=== PATIENT | female | born 1935 | race Caucasian/White ===

== ENCOUNTER 2016-07-14 22:30 | Emergency (ER) | payer OTHER ==
[~2016-07-14] VITALS: Ht 170.2 cm; Wt 83.0 kg
[~2016-07-14 22:30] MED LIST: ASPI81CH5; AVAP300T PO; CALC500; GABA400C5 PO; HYDR-2768 PO; METO25 PO; PROT40TA PO; VENL37.5 PO
[2016-07-14] MEDS ORDERED: methylPREDNISolone SOD SUCC 125 MG/2 ML VIAL IV PUSH ONE (22:45)
[2016-07-14] MEDS ORDERED: SODIUM CHLORID 0.9% 500 ML INJ 500 ML IV ONE (22:45)
[2016-07-14] MEDS ORDERED: ONDANSETRON HCL 4 MG/2 ML VIAL IV PUSH ONE (22:45)
--- NOTE | 2016-07-14 23:28 | PD ---
HPI Chief Complaint: cellulitis Time Seen by Provider: 22:33 Travel History International Travel<30 days: No Contact w/Intl Traveler<30days: No Traveled to known affect area: No History of Present Illness HPI Patient is a 80-year-old female who comes in after a possible allergic reaction. She says that she has been having symptoms of a urinary tract infection. She says she called her doctor who gave her a prescription for Macrobid. She took the first pill tonight. She does say that she was taking this in early June as well for possible UTI. She says tonight she started to feel itching in her palms and then her arms. She was trying to get some calamine lotion to put on for the itching. She says she then became sick to her stomach. She went she's the bathroom and vomited in the sink. She says she passed out she thinks. She was found on the ground by her friend. She denies any headache, blurred vision. She is still feeling nauseous. She was given Benadryl by EMS, and says that her itching has resolved now. She denies ever having any trouble breathing. She denies feeling any swelling of her tongue, her mouth or her throat. She says she has not had issues with Macrobid in the past, however is listed as an allergy on a note from Past Medical History Heart Rhythm Problems: No Cardiac Catheterization: No Cardiovascular Problems: No High Cholesterol: Yes Congestive Heart Failure: No Diabetes: Yes (DIET CONTROLLED) Diminished Hearing: No Hypertension: Yes Neurologic: Yes (neuropathy) Past Surgical History Coronary Artery Bypass Graft: No Genitourinary Surgery: Yes (bladder susp.) Gynecologic Surgery: Yes (hysterectomy) Tonsillectomy: Yes Social History Alcohol Use: No Tobacco Use: No Substance Use: No Allergies-Medications (Allergen,Severity, Reaction): Coded Allergies: Macrobid (Verified Allergy, Intermediate, rash, 07/14/16) Penicillin (Verified Allergy, Mild, Hives, 07/14/16) Sulfa (Verified Allergy, Unknown, 07/14/16) Reported Meds & Prescriptions Reported Meds & Active Scripts Active Zofran Odt (Ondansetron Odt) 4 Mg Tab 4 Mg SL Q6HR PRN Pyridium (Phenazopyridine HCl) 100 Mg Tab 100 Mg PO Q8H PRN Ceftin (Cefuroxime Axetil) 500 Mg Tab 500 Mg PO BID 10 Days Medrol Dosepak (Methylprednisolone) 4 Mg Dspk 4 Mg PO DIRECTED Per Pharmacist direction Reported Effexor (Venlafaxine HCl) 37.5 Mg Tab 37.5 Mg PO Q12H Atorvastatin (Atorvastatin Calcium) 10 Mg Tab 10 Mg PO HS Gabapentin 400 Mg Cap 400 Cap PO HS Gabapentin 400 Mg Cap 400 Cap PO HS Omeprazole 20 Mg Cap Metoprolol Tartrate 50 Mg Tab 50 Mg PO BID Fish Oil ([place]-3 Fatty Acids) 1,000 Mg Cap Calcium (Calcium Carbonate) 600 Mg Tab Irbesartan 150 Mg Tab 150 Mg PO DAILY Aspirin Low Dose (Aspirin) 81 Mg Chew 81 Mg CHEW DAILY Review of Systems Except as stated in HPI: all other systems reviewed are Neg General / Constitutional: No: Fever, Chills Eyes: No: Blurred Vision HENT: No: Headaches Cardiovascular: No: Chest Pain or Discomfort Respiratory: No: Shortness of Breath Gastrointestinal: Positive: Nausea, Vomiting, No: Abdominal Pain Genitourinary: Positive: Dysuria Musculoskeletal: No: Edema Skin: Positive Itching Neurologic: Positive: Syncope, No: Weakness, Dizziness Physical Exam Narrative GENERAL: Awake and alert, no respiratory distress. SKIN: Warm and dry. No urticaria. Skin of the face and arms is erythematous. HEAD: Atraumatic. Normocephalic. EYES: Pupils equal and round. No scleral icterus. Extraocular movements intact. ENT: Mucous membranes pink and moist. No tongue swelling, no pharyngeal edema or uvular edema. NECK: Trachea midline. No JVD. CARDIOVASCULAR: Regular rate and rhythm. No murmur appreciated. RESPIRATORY: No accessory muscle use. Clear to auscultation. Breath sounds equal bilaterally. GASTROINTESTINAL: Abdomen soft, non-tender, nondistended. MUSCULOSKELETAL: No obvious deformities. No clubbing. No cyanosis. No edema. NEUROLOGICAL: Awake and alert. No obvious cranial nerve deficits. Motor grossly within normal limits. Normal speech. PSYCHIATRIC: Appropriate mood and affect; insight and judgment normal. Data Data Last Documented VS Vital Signs Date Time Temp Pulse Resp B/P Pulse Ox O2 Delivery O2 Flow Rate FiO2 07/15/16 05:22 68 18 160/73 96 Room Air 07/15/16 00:01 97.9 Orders Complete Blood Count With Diff (07/14/16 22:45) Comprehensive Metabolic Panel (07/14/16 22:45) Troponin I (07/14/16 22:45) Electrocardiogram (07/14/16 ) Urinalysis - C+S If Indicated (07/14/16 22:45) Ct Brain W/O Iv Contrast(Rout) (07/14/16 ) Methylprednisolone So Succ Inj (Solumedr (07/14/16 22:45) Ondansetron Inj (Zofran Inj) (07/14/16 22:45) Sodium Chlorid 0.9% 500 Ml Inj (Ns 500 M (07/14/16 22:45) Cath For Specimen (07/15/16 02:26) Urine Culture (07/15/16 02:50) Ceftriaxone Inj (Rocephin Inj) (07/15/16 04:00) Labs Laboratory Tests Test 07/14/16 07/15/16 23:55 02:50 White Blood Count 16.2 TH/MM3 Red Blood Count 4.32 MIL/MM3 Hemoglobin 12.3 GM/DL Hematocrit 37.6 % Mean Corpuscular Volume 87.0 FL Mean Corpuscular Hemoglobin 28.6 PG Mean Corpuscular Hemoglobin 32.8 % Concent Red Cell Distribution Width 13.6 % Platelet Count 398 TH/MM3 Mean Platelet Volume 7.9 FL Neutrophils (%) (Auto) 81.3 % Lymphocytes (%) (Auto) 15.9 % Monocytes (%) (Auto) 1.0 % Eosinophils (%) (Auto) 0.4 % Basophils (%) (Auto) 1.4 % Neutrophils # (Auto) 13.1 TH/MM3 Lymphocytes # (Auto) 2.6 TH/MM3 Monocytes # (Auto) 0.2 TH/MM3 Eosinophils # (Auto) 0.1 TH/MM3 Basophils # (Auto) 0.2 TH/MM3 CBC Comment DIFF FINAL Differential Comment Sodium Level 133 MEQ/L Potassium Level 4.2 MEQ/L Chloride Level 100 MEQ/L Carbon Dioxide Level 22.2 MEQ/L Anion Gap 11 MEQ/L Blood Urea Nitrogen 35 MG/DL Creatinine 1.00 MG/DL Estimat Glomerular Filtration 53 ML/MIN Rate Random Glucose 138 MG/DL Calcium Level 8.6 MG/DL Total Bilirubin 0.3 MG/DL Aspartate Amino Transf 22 U/L (AST/SGOT) Alanine Aminotransferase 23 U/L (ALT/SGPT) Alkaline Phosphatase 81 U/L Troponin I LESS THAN 0.02 NG/ML Total Protein 7.1 GM/DL Albumin 3.3 GM/DL Urine Collection Type CATH Urine Color YELLOW Urine Turbidity MOD Urine pH 5.5 Urine Specific [place] 1.019 Urine Protein TRACE mg/dL Urine Glucose (UA) NEG mg/dL Urine Ketones TRACE mg/dL Urine Occult Blood TRACE Urine Nitrite NEG Urine Bilirubin NEG Urine Leukocyte Esterase LARGE Urine RBC 0-3 /hpf Urine WBC INNUM /hpf Urine WBC Clumps MOD Urine Squamous Epithelial 0-5 /hpf Cells Urine Amorphous Sediment FEW Urine Bacteria MOD /hpf Urine Hyaline Casts 3-5 /lpf Urine Mucus OCC /lpf Microscopic Urinalysis Comment CATH-CULTURE IND MDM Medical Decision Making Medical Screen Exam Complete: Yes Emergency Medical Condition: Yes Medical Record Reviewed: Yes Interpretation(s) ECG shows sinus bradycardia at 58, no ST elevation or depression. QTC is 493 Differential Diagnosis Allergic reaction versus UTI versus dehydration versus electrolyte abnormality Narrative Course Patient is a 80-year-old female who comes in after what she believes to be an allergic reaction. She says it started with itching in her palms, and she eventually passed out. She says this is very similar to have a reaction she had to sulfa drugs in the past. She has never had any airway compromise. IV was established by EMS. Patient given IV fluids, Solu-Medrol. She received Benadryl by EMS. Given Zofran. CT of the head performed shows no acute abnormalities. Labs sent to check electrolytes. Patient will be observed to make sure symptoms do not return. Signed out to Dr. Meza to follow up labs and disposition appropriately. Scripts Ondansetron Odt (Zofran Odt)4 Mg Tab4 Mg SL Q6HR PRN (Nausea/Vomiting) #10 TAB Ref 0 Prov:Catherine Meza MD 07/15/16 Phenazopyridine (Pyridium)100 Mg [id number] Mg PO Q8H PRN (DYSURIA) #6 TAB Ref 0 Prov:Catherine Meza MD 07/15/16 Cefuroxime (Ceftin)500 Mg [id number] Mg PO BID 10 Days Ref 0 Prov:Catherine Meza MD 07/15/16 Methylprednisolone Dosepak (Medrol Dosepak)4 Mg Dspk4 Mg PO DIRECTED #1 DSPK Ref 0 Per Pharmacist direction Prov:Catherine Meza MD 07/15/16 Condition: Stable Yenni Denson MD Jul 14, 2016 23:28
--- NOTE | 2016-07-14 23:45 | RADHPO ---
EXAM DATE/TIME: 07/14/2016 23:30 [facility] COMPARISON: No previous studies available for comparison. INDICATIONS : Syncope. Nausea. Vomiting. RADIATION DOSE: 61.47 CTDIvol (mGy) MEDICAL HISTORY : Hypertension. Diabetes mellitus type 2. SURGICAL HISTORY : Tonsillectomy. ENCOUNTER: Initial ACUITY: 1 day PAIN SCALE: 3/10 LOCATION: cranial TECHNIQUE: Multiple contiguous axial images were obtained of the head. Using automated exposure control and adj ustment of the mA and/or kV according to patient size, radiation dose was kept as low as reasonably a chievable to obtain optimal diagnostic quality images. FINDINGS: CEREBRUM: Minimal scattered areas low-attenuation frontal white matter. The ventricles are normal for age. No evidence of midline shift, mass lesion, hemorrhage or acute infarction. No extra-axial fluid collect ions are seen. POSTERIOR FOSSA: The cerebellum and brainstem are intact. The 4th ventricle is midline. The cerebellopontine angle i s unremarkable. EXTRACRANIAL: The visualized portion of the orbits is intact. SKULL: The calvaria is intact. No evidence of skull fracture. CONCLUSION: 1. Minimal nonspecific white matter changes. 2. No acute intracranial abnormality. Keagan Thorne MD on July 14, 2016 at 23:43 Board Certified Radiologist. This report was verified electronically.
[2016-07-15 00:01] VITALS: TEMP 97.9
[2016-07-15 00:11] VITALS: BP 140/57; PULSE 67; RESP 18; O2SAT 97
[2016-07-15 00:23] LABS: AUTOMATED NEUTROPHIL # 13.1 TH/MM3 (1.8-7.7); BASOPHIL # 0.2 TH/MM3 (0-0.2); BASOPHIL % 1.4 % (0.0-2.0); EOSINOPHIL # 0.1 TH/MM3 (0-0.4); EOSINOPHIL % 0.4 % (0.0-4.0); HEMATOCRIT 37.6 % (35.0-46.0); LYMPH % 15.9 % (9.0-44.0); LYMPHOCYTE # 2.6 TH/MM3 (1.0-4.8); MEAN CORPUSCULAR HEMOGLOBIN 28.6 PG (27.0-34.0); MEAN CORPUSCULAR HGB CONC 32.8 % (32.0-36.0); NEUT % 81.3 % (16.0-70.0); PLATELET COUNT 398 TH/MM3 (150-450); RED BLOOD COUNT 4.32 MIL/MM3 (4.00-5.30); RED CELL DISTRIBUTION WIDTH 13.6 % (11.6-17.2); WHITE BLOOD COUNT 16.2 TH/MM3 (4.0-11.0)
[2016-07-15] MEDS ORDERED: ATOR10TA15 PO (00:25)
[2016-07-15] MEDS ORDERED: CALC600T25 (00:25)
[2016-07-15] MEDS ORDERED: METO50TA PO (00:25)
[2016-07-15] MEDS ORDERED: ASPI81CH37 CHEW (00:25)
[2016-07-15] MEDS ORDERED: IRBE150T15 PO (00:25)
[2016-07-15] MEDS ORDERED: GABA400C5 PO (00:25)
[2016-07-15] MEDS ORDERED: OMEP20CA2 (00:25)
[2016-07-15] MEDS ORDERED: FISH1000 (00:25)
[2016-07-15] MEDS ORDERED: VENL37.5 PO (00:25)
[2016-07-15 00:26] LABS: HEMO FLAGS DIFF FINAL
[2016-07-15 00:31] LABS: CHLORIDE 100 MEQ/L (98-107); POTASSIUM 4.2 MEQ/L (3.5-5.1); SODIUM (NA) 133 MEQ/L (136-145)
[2016-07-15 00:35] LABS: ANION GAP 11 MEQ/L (5-15); BICARBONATE 22.2 MEQ/L (21.0-32.0); BLOOD UREA NITROGEN 35 MG/DL (7-18)
[2016-07-15 00:38] LABS: ALT (GPT) 23 U/L (10-53); AST (GOT) 22 U/L (15-37); GLOMERULAR FILTRATION RATE 53 ML/MIN (>89)
[2016-07-15 00:39] LABS: TOTAL BILIRUBIN ADULT 0.3 MG/DL (0.2-1.0)
[2016-07-15 00:40] LABS: ALKALINE PHOSPHATASE 81 U/L (45-117)
--- NOTE | 2016-07-15 00:43 | PD ---
Physical Exam Date Seen by Provider: Jul 15, 2016 Time Seen by Provider: 00:42 Narrative Accepted in transfer of care from Dr. Denson GENERAL: Well-developed well-nourished female in no acute distress no respiratory distress SKIN: Warm and dry. No urticaria HEAD: Normocephalic. EYES: No scleral icterus. No injection or drainage. NECK: Supple, trachea midline. No JVD or lymphadenopathy. CARDIOVASCULAR: Regular rate and rhythm without murmurs, gallops, or rubs. RESPIRATORY: Breath sounds equal bilaterally. No accessory muscle use. Data Data Last Documented VS Vital Signs Date Time Temp Pulse Resp B/P Pulse Ox O2 Delivery O2 Flow Rate FiO2 07/15/16 04:27 64 14 142/73 96 Room Air 07/15/16 00:01 97.9 Orders Complete Blood Count With Diff (07/14/16 22:45) Comprehensive Metabolic Panel (07/14/16 22:45) Troponin I (07/14/16 22:45) Electrocardiogram (07/14/16 ) Urinalysis - C+S If Indicated (07/14/16 22:45) Ct Brain W/O Iv Contrast(Rout) (07/14/16 ) Methylprednisolone So Succ Inj (Solumedr (07/14/16 22:45) Ondansetron Inj (Zofran Inj) (07/14/16 22:45) Sodium Chlorid 0.9% 500 Ml Inj (Ns 500 M (07/14/16 22:45) Cath For Specimen (07/15/16 02:26) Urine Culture (07/15/16 02:50) Ceftriaxone Inj (Rocephin Inj) (07/15/16 04:00) Labs Laboratory Tests Test 07/14/16 07/15/16 23:55 02:50 White Blood Count 16.2 TH/MM3 Red Blood Count 4.32 MIL/MM3 Hemoglobin 12.3 GM/DL Hematocrit 37.6 % Mean Corpuscular Volume 87.0 FL Mean Corpuscular Hemoglobin 28.6 PG Mean Corpuscular Hemoglobin 32.8 % Concent Red Cell Distribution Width 13.6 % Platelet Count 398 TH/MM3 Mean Platelet Volume 7.9 FL Neutrophils (%) (Auto) 81.3 % Lymphocytes (%) (Auto) 15.9 % Monocytes (%) (Auto) 1.0 % Eosinophils (%) (Auto) 0.4 % Basophils (%) (Auto) 1.4 % Neutrophils # (Auto) 13.1 TH/MM3 Lymphocytes # (Auto) 2.6 TH/MM3 Monocytes # (Auto) 0.2 TH/MM3 Eosinophils # (Auto) 0.1 TH/MM3 Basophils # (Auto) 0.2 TH/MM3 CBC Comment DIFF FINAL Differential Comment Sodium Level 133 MEQ/L Potassium Level 4.2 MEQ/L Chloride Level 100 MEQ/L Carbon Dioxide Level 22.2 MEQ/L Anion Gap 11 MEQ/L Blood Urea Nitrogen 35 MG/DL Creatinine 1.00 MG/DL Estimat Glomerular Filtration 53 ML/MIN Rate Random Glucose 138 MG/DL Calcium Level 8.6 MG/DL Total Bilirubin 0.3 MG/DL Aspartate Amino Transf 22 U/L (AST/SGOT) Alanine Aminotransferase 23 U/L (ALT/SGPT) Alkaline Phosphatase 81 U/L Troponin I LESS THAN 0.02 NG/ML Total Protein 7.1 GM/DL Albumin 3.3 GM/DL Urine Collection Type CATH Urine Color YELLOW Urine Turbidity MOD Urine pH 5.5 Urine Specific [place] 1.019 Urine Protein TRACE mg/dL Urine Glucose (UA) NEG mg/dL Urine Ketones TRACE mg/dL Urine Occult Blood TRACE Urine Nitrite NEG Urine Bilirubin NEG Urine Leukocyte Esterase LARGE Urine RBC 0-3 /hpf Urine WBC INNUM /hpf Urine WBC Clumps MOD Urine Squamous Epithelial 0-5 /hpf Cells Urine Amorphous Sediment FEW Urine Bacteria MOD /hpf Urine Hyaline Casts 3-5 /lpf Urine Mucus OCC /lpf Microscopic Urinalysis Comment CATH-CULTURE IND MDM Medical Record Reviewed: Yes Supervised Visit with TOAN: No Interpretation(s) EKG sinus bradycardia no acute ST elevation or injury pattern change artifact is present at baseline Last Impressions Head CT 07/14/16 0000 Signed Impressions: Service Date/Time: Thursday, July 14, 2016 23:30 - CONCLUSION: 1. Minimal nonspecific white matter changes. 2. No acute intracranial abnormality. Keagan Thorne MD CBC was automated differential leukocytosis 16,200 with left shift 81% neutrophils Urinalysis positive white blood cells clumped white blood cells moderate bacteria culture indicated catheter specimen Metabolic panel values grossly within normal limits except for elevated BUN of 35 and normal range creatinine of 1.0; normal bicarbonate and anion gap; random glucose 138 Troponin I: Less than 0.02 Differential Diagnosis Please refer to Dr. Denson's dictation Narrative Course Accepted in transfer of care from Dr. Denson for pending labs and patient disposition; patient voicing no concerns--reports that symptoms are typical of her prior allergic reaction to sulfa with itching lightheadedness and syncopal episode which occurred after going to the bathroom. Patient denies any injury CT brain noncontrast was negative for acute process patient was administered Benadryl 50 mg IV by EMS and subsequently Pepcid and Solu-Medrol in the emergency department. Lab values are pending. At time of transfer of care from Dr Denson anticipated plan of discharge to home with Medrol Dosepak and Pepcid or Zantac [id number] and alternative antibiotic. @ 2:15 AM patient ambulatory to bathroom to collect urine sample Patient unable to successfully collect specimen for urinalysis therefore mini catheter ordered and catheter specimen was collected and sent for resulting @3:50 AM patient is identified to have a clearly abnormal urinalysis by catheter specimen culture indicated white count is 16,000; patient has been ambulatory about the emergency department and remained asymptomatic; patient will be given first dose of antibiotic in the emergency department a controlled environment; will administer Rocephin 1 g IV piggyback with close monitoring. Patient offered observation for serial cardiac enzymes; review of medical record does identify patient had negative stress test per reading clerical associate ; patient clearly has a urinary tract infection is hemodynamically stable via blood pressure and heart rate remains afebrile; patient able to tolerate IV Rocephin. Patient had syncopal episode after reportedly vomiting secondary to allergic reaction to Macrobid. Review of medical record also identifies patient was seen 2005 with new-onset allergic reaction to Macrobid and also Macrobid was listed as a medication allergy 10/2015. With daughter at bedside offered patient observation stay for syncope--- most likely vasovagal related to episode of nausea and vomiting and then episode of syncope; also for ongoing antibiotic therapy and controlled environment; also observation for allergic reaction ongoing administered Benadryl and Solu-Medrol and Pepcid IV. At 5:25 AM patient has been ambulatory about the emergency room feels well voicing no concerns or complaints is desirous of being discharged to home as tolerated IV Rocephin without adverse reaction will be placed on Ceftin and Macrobid will be discontinued. Patient also given prescription for Medrol Dosepak encouraged to continue Pepcid or Zantac [id number] along with Benadryl. Patient is encouraged to follow-up with her primary care physician and return to the emergency for free concerns Diagnosis Primary Impression: Syncope Qualified Code: R55 - Vasovagal syncope Additional Impressions: Allergic reaction to drug Qualified Code: T78.40XA - Allergic reaction to drug, initial encounter UTI (urinary tract infection) Qualified Code: N30.00 - Acute cystitis without hematuria Referrals: Family Practice Physician 1 day Patient Instructions: General Instructions Additional Instruction: Increase fluid hydration Complete course of new antibiotic as prescribed Discontinue Macrobid this is an allergy medication do not take in the future Monitor temperature with thermometer take acetaminophen/Tylenol every 4 hours as needed for fever 100.4F or greater Complete course of Medrol Dosepak as prescribed Use [id number] Pepcid before meals or Zantac 150 twice daily for the next 7 days Use Benadryl 25-50 mg by mouth as often as every 4-6 hours as needed for itching or rash associated with allergic reaction; be aware this medication may cause drowsiness and may cause increased risk for fall Return to the emergency department for any concerns or change in condition; such as pain fever vomiting recurrent rash or any concerns Do not take Advil/Motrin/ibuprofen or Aleve/Naprosyn/naproxen wall completing steroid taper course Complete course of antibiotic as prescribed Follow-up with your primary care provider call office in a.m. to schedule follow -up appointment this week Med/Other Pt SpecificInfo: Prescription(s) given, Med Stopped (macrobid --- do NOT take) Scripts Ondansetron Odt (Zofran Odt)4 Mg Tab4 Mg SL Q6HR PRN (Nausea/Vomiting) #10 TAB Ref 0 Prov:Catherine Meza MD 07/15/16 Phenazopyridine (Pyridium)100 Mg [id number] Mg PO Q8H PRN (DYSURIA) #6 TAB Ref 0 Prov:Catherine Meza MD 07/15/16 Cefuroxime (Ceftin)500 Mg [id number] Mg PO BID 10 Days Ref 0 Prov:Catherine Meza MD 07/15/16 Methylprednisolone Dosepak (Medrol Dosepak)4 Mg Dspk4 Mg PO DIRECTED #1 DSPK Ref 0 Per Pharmacist direction Prov:Catherine Meza MD 07/15/16 Disposition: 01 DISCHARGE HOME Condition: Stable Catherine Meza MD Jul 15, 2016 00:43
[2016-07-15 01:09] VITALS: BP 133/59; PULSE 67; RESP 18; O2SAT 96
[2016-07-15 02:20] VITALS: BP 155/69; PULSE 62; RESP 18; O2SAT 97
[2016-07-15 02:58] LABS: BLOOD, URINE TRACE (NEG); GLUCOSE,URINE NEG (NEG); KETONE, URINE TRACE mg/dL (NEG); NITRITE,URINE NEG (NEG); PH, URINE 5.5 (5.0-8.5)
[2016-07-15 03:11] LABS: METHOD OF COLLECTION CATH; URINE COLOR YELLOW (YELLW/STRAW)
[2016-07-15 03:12] LABS: WBC, URINE INNUM /hpf (0-5)
[2016-07-15 03:13] LABS: MUCUS URINE OCC /lpf (OCC); SQUAMOUS EPITHELIAL CELL URINE 0-5 /hpf (0-5)
[2016-07-15 03:15] LABS: RBC, URINE 0-3 /hpf (0-3)
[2016-07-15 03:16] LABS: BACTERIA, URINE MOD /hpf
[2016-07-15 03:28] LABS: COMMENT (UR) CATH-CULTURE IND; CULTURE IF INDICATED CATH CULTURE IND
[2016-07-15] MEDS ORDERED: cefTRIAXone INJ 1,000 MG in SODIUM CHLORIDE 0.9% INJ 100 ML IV ONE (04:00)
[2016-07-15 04:27] VITALS: BP 142/73; PULSE 64; RESP 14; O2SAT 96
[2016-07-15 05:22] VITALS: BP 160/73; PULSE 68; RESP 18; O2SAT 96
[2016-07-15] MEDS ORDERED: MEDR4PAK PO (05:27)
[2016-07-15] MEDS ORDERED: PHEN0.4T PO (05:27)
[2016-07-15] MEDS ORDERED: CEFT500T3 PO (05:27)
[2016-07-15] MEDS ORDERED: ZOFR4TAB3 SL (05:28)
--- NOTE | 2016-07-15 22:32 | EKG ---
Date Performed: 07/14/2016 Time Performed: 22:57:28 PTAGE: 80 years EKG: Possible ectopic atrial bradycardia Prolonged QT interval Borderline ECG PREVIOUS TRACING : 10/20/2015 14.03 Compared to prior tracing no significant change DOCTOR: Gavin Sarmiento Interpretating Date/Time 07/15/2016 22:28:54
[2016-12-04] MEDS ORDERED: PHEN0.4T PO (11:52)
== END 2016-07-15 05:43 | disposition home or self-care (01) ==
LOC: PHED 22:30
DX: T50.995A Adverse effect of other drugs, medicaments and biological substances, initial encounter (principal); N39.0 Urinary tract infection, site not specified; R55 Syncope and collapse; E78.00 Pure hypercholesterolemia, unspecified; E11.9 Type 2 diabetes mellitus without complications; I10 Essential (primary) hypertension
CPT/HCPCS: 70450; 80053; 81001; 84484; 85025; 87086; 93005; J0696; J2405; J2930; J7040; 96361; 96365; 96375; P9612